=== PATIENT | female | born 1970 | race Caucasian/White ===

== ENCOUNTER 2019-03-06 15:42 | Emergency (ER) | payer OTHER ==
[~2019-03-06] VITALS: Ht 182.8 cm; Wt 167.8 kg
[~2019-03-06 15:42] MED LIST: ANAPROX DS550 MG PO; BACTRIM DS 8001 TA1 PO; CYCLOBENZAPRINE10 MG PO; DIFLUCAN150 MG PO; MACROBID100 M1 PO; MAGNESIUM400 M1 PO; NAPROSYN500 MG PO; NORCO 325 MG-51 TAB PO; OMEGA-31000 MG PO; PROPRANOLOL HCL40 M1 PO; PROVERA10 MG PO; PROVERA5 MG PO; RANITIDINE75 MG PO; ROBAXIN750 MG PO; TOPAMAX100 M1 PO; TRAMADOL HCL50 MG PO; ZANTAC150 MG PO; ZOFRAN4 MG PO
[2019-03-06 15:43] VITALS: BP 153/70
[2019-03-06] MEDS ORDERED: DICLOFENAC SODI50 MG PO (16:41)
== END 2019-03-06 17:05 | disposition home or self-care (01) ==
LOC: ED 15:42
DX: M25.562 Pain in left knee (principal); M17.12 Unilateral primary osteoarthritis, left knee; Z79.899 Other long term (current) drug therapy; Z88.7 Allergy status to serum and vaccine; Z88.8 Allergy status to other drugs, medicaments and biological substances; Z88.6 Allergy status to analgesic agent; Z91.040 Latex allergy status; X50.1XXA Overexertion from prolonged static or awkward postures, initial encounter; Y93.89 Activity, other specified; Y92.89 Other specified places as the place of occurrence of the external cause; Y99.9 Unspecified external cause status

== ENCOUNTER 2021-08-06 18:44 | Emergency (ER) | payer OTHER ==
[~2021-08-06] VITALS: Ht 175.2 cm; Wt 161.0 kg
[~2021-08-06 18:44] MED LIST changes: +DICLOFENAC SODI50 MG PO
[2021-08-06 18:49] VITALS: BP 163/88
[2021-08-06] MEDS ORDERED: PREDNISONE20 M1 PO (22:49)
== END 2021-08-06 23:19 | disposition home or self-care (01) ==
LOC: ED 18:44
DX: S60.212A Contusion of left wrist, initial encounter (principal); M25.552 Pain in left hip; M25.562 Pain in left knee; Z88.7 Allergy status to serum and vaccine; Z91.040 Latex allergy status; Z88.8 Allergy status to other drugs, medicaments and biological substances; Z79.899 Other long term (current) drug therapy; Z90.49 Acquired absence of other specified parts of digestive tract; W18.39XA Other fall on same level, initial encounter; Y93.89 Activity, other specified; Y92.89 Other specified places as the place of occurrence of the external cause; Y99.8 Other external cause status

== ENCOUNTER 2022-03-14 12:01 | Inpatient (IN) | payer OTHER ==
[~2022-03-14] VITALS: Ht 177.8 cm; Wt 165.2 kg
[~2022-03-14 12:01] MED LIST changes: +PREDNISONE20 M1 PO
[2022-03-14 12:09] VITALS: BP 157/88
[2022-03-14 16:00] VITALS: BP 148/84
[2022-03-14 20:02] VITALS: BP 134/84
[2022-03-14 21:45] VITALS: BP 140/86
[2022-03-15] VITALS: BP 156/67
[2022-03-15 06:33] LABS: BASO # 0.1 10*3/uL (0.0-0.1); BASO % 0.7 % (0.0-1.0); EOS # 0.2 10*3/uL (0.0-0.4); HEMATOCRIT 43.1 % (37.0-47.0); LYMPH # 2.8 10*3/uL (1.3-4.4); LYMPH % 34.5 % (27.0-41.0); MEAN CELL VOLUME 87.8 fl (81.0-99.0); MEAN CORPUSCULAR HGB 29.1 pg (27.0-31.0); MEAN CORPUSCULAR HGB CONC 33.2 g/dl (33.0-37.0); MEAN PLATELET VOLUME 10.8 fl (9.6-12.3); MONO # 0.9 10*3/uL (0.1-1.0); NEUT # 4.1 10*3/uL (2.3-7.9); NEUT % 51.7 % (47.0-73.0); PLATELET COUNT AUTOMATED 248 10*3/uL (130-400); RED BLOOD COUNT 4.91 10*6/uL (4.10-5.10); RED CELL DISTRI WIDTH 12.1 % (0-14.5)
[2022-03-15 07:21] LABS: BUN 8 mg/dl (7-24); CHLORIDE 109 mmol/L (98-107); CHOLESTEROL 206 mg/dL (<200); CREATININE 0.75 mg/dL (0.55-1.02); POTASSIUM 2.9 mmol/L (3.5-5.1); SODIUM 141 mmol/L (136-145); TRIGLYCERIDES 190 mg/dl (<150)
[2022-03-15 07:31] LABS: FREE T4 0.82 ng/dl (0.76-1.46); LDL CHOLESTEROL 127 mg/dL (9-159)
[2022-03-15 08:00] VITALS: BP 150/80
[2022-03-15] MEDS ORDERED: RYBELSUS7 MG PO (09:40)
[2022-03-15] MEDS ORDERED: FLOVENT HFA12 GM INH (09:40)
[2022-03-15] MEDS ORDERED: GLIPIZIDE10 M1 PO (09:41)
[2022-03-15] MEDS ORDERED: DICLOFENAC SOD75 MG PO (09:41)
[2022-03-15] MEDS ORDERED: LEVOTHYROXINE200 MC2 PO (09:42)
[2022-03-15] MEDS ORDERED: LEVOTHYROXINE50 MCG PO (09:44)
[2022-03-15] MEDS ORDERED: OMEPRAZOLE40 MG PO (09:45)
[2022-03-15] MEDS ORDERED: MICRONIZED COLES1 GM PO (09:47)
[2022-03-15] MEDS ORDERED: CRESTOR20 M1 PO (09:48)
[2022-03-15 12:00] VITALS: BP 151/77
[2022-03-15 15:46] VITALS: BP 148/84
[2022-03-15 20:00] VITALS: BP 135/86
[2022-03-16] VITALS: BP 147/83
[2022-03-16 08:00] VITALS: BP 142/83
[2022-03-16 09:52] LABS: BASO # 0.1 10*3/uL (0.0-0.1); BASO % 0.7 % (0.0-1.0); EOS # 0.2 10*3/uL (0.0-0.4); EOS % 3.5 % (1.0-4.0); HEMATOCRIT 43.9 % (37.0-47.0); LYMPH # 2.7 10*3/uL (1.3-4.4); LYMPH % 39.3 % (27.0-41.0); MEAN CELL VOLUME 87.8 fl (81.0-99.0); MEAN CORPUSCULAR HGB 29.2 pg (27.0-31.0); MEAN CORPUSCULAR HGB CONC 33.3 g/dl (33.0-37.0); MEAN PLATELET VOLUME 9.6 fl (9.6-12.3); MONO # 0.8 10*3/uL (0.1-1.0); MONO % 11.9 % (3.0-9.0); NEUT % 44.5 % (47.0-73.0); PLATELET COUNT AUTOMATED 239 10*3/uL (130-400); RED CELL DISTRI WIDTH 12.3 % (0-14.5); WHITE BLOOD COUNT 6.8 10*3/uL (4.8-10.8)
[2022-03-16 10:08] LABS: BUN 7 mg/dl (7-24); CHLORIDE 108 mmol/L (98-107); CREATININE 0.76 mg/dL (0.55-1.02); POTASSIUM 3.7 mmol/L (3.5-5.1); SODIUM 140 mmol/L (136-145)
[2022-03-16 12:00] VITALS: BP 142/85
[2022-03-16 16:00] VITALS: BP 152/80
[2022-03-16 20:00] VITALS: BP 137/84
[2022-03-17] VITALS: BP 136/93
[2022-03-17 08:00] VITALS: BP 143/75
[2022-03-17 10:50] LABS: VITAMIN D, 25-HYDROXY 17.8 ng/mL (30-100)
[2022-03-17] MEDS ORDERED: Percocet 325 MG1 TAB PO (11:35)
[2022-03-17 12:00] VITALS: BP 140/71
[2022-03-17 16:00] VITALS: BP 148/69
== END 2022-03-17 15:00 | disposition home or self-care (01) | DRG 342 ==
LOC: ED 12:01 → 4E 16:35 → EDHOLD 16:35 → 4E 20:02
PROVIDERS: Student in an Organized Health Care Education/Training Program; ADMIT Internal Medicine; ATTEND Internal Medicine
DX: S82.142A Displaced bicondylar fracture of left tibia, initial encounter for closed fracture (principal); J45.909 Unspecified asthma, uncomplicated; E03.9 Hypothyroidism, unspecified; E78.5 Hyperlipidemia, unspecified; E66.01 Morbid (severe) obesity due to excess calories; K21.9 Gastro-esophageal reflux disease without esophagitis; I10 Essential (primary) hypertension; E87.6 Hypokalemia; E87.8 Other disorders of electrolyte and fluid balance, not elsewhere classified; E11.65 Type 2 diabetes mellitus with hyperglycemia; Z20.822 Contact with and (suspected) exposure to COVID-19; R26.2 Difficulty in walking, not elsewhere classified; Z88.7 Allergy status to serum and vaccine; Z88.8 Allergy status to other drugs, medicaments and biological substances; Z88.1 Allergy status to other antibiotic agents; Z91.040 Latex allergy status; Z90.710 Acquired absence of both cervix and uterus; Z90.49 Acquired absence of other specified parts of digestive tract; Z83.3 Family history of diabetes mellitus; Z82.3 Family history of stroke; Z82.49 Family history of ischemic heart disease and other diseases of the circulatory system; Z78.9 Other specified health status; Z68.43 Body mass index [BMI] 50.0-59.9, adult; W01.0XXA Fall on same level from slipping, tripping and stumbling without subsequent striking against object, initial encounter; Y93.89 Activity, other specified; Y92.89 Other specified places as the place of occurrence of the external cause; Y99.8 Other external cause status

== ENCOUNTER 2022-04-19 10:44 | Emergency (ER) | payer OTHER ==
[~2022-04-19] VITALS: Wt 164.2 kg
[~2022-04-19 10:44] MED LIST changes: +CRESTOR20 M1 PO; +DICLOFENAC SOD75 MG PO; +FLOVENT HFA12 GM INH; +GLIPIZIDE10 M1 PO; +LEVOTHYROXINE200 MC2 PO; +LEVOTHYROXINE50 MCG PO; +MICRONIZED COLES1 GM PO; +OMEPRAZOLE40 MG PO; +Percocet 325 MG1 TAB PO; +RYBELSUS7 MG PO
[2022-04-19 12:26] VITALS: BP 150/73
== END 2022-04-19 13:08 | disposition home or self-care (01) ==
LOC: ED 10:44
DX: S89.92XA Unspecified injury of left lower leg, initial encounter (principal); K21.9 Gastro-esophageal reflux disease without esophagitis; I10 Essential (primary) hypertension; E78.5 Hyperlipidemia, unspecified; E03.9 Hypothyroidism, unspecified; E66.01 Morbid (severe) obesity due to excess calories; E11.9 Type 2 diabetes mellitus without complications; Z88.8 Allergy status to other drugs, medicaments and biological substances; Z91.040 Latex allergy status; Z88.1 Allergy status to other antibiotic agents; Z79.899 Other long term (current) drug therapy; Z90.89 Acquired absence of other organs; Z90.49 Acquired absence of other specified parts of digestive tract; Z98.890 Other specified postprocedural states; Z90.710 Acquired absence of both cervix and uterus; W18.39XA Other fall on same level, initial encounter; Y93.89 Activity, other specified; Y92.89 Other specified places as the place of occurrence of the external cause; Y99.8 Other external cause status

== ENCOUNTER → 2022-11-11 | Outpatient (CLI) | payer OTHER | END | disposition home or self-care (01) | LOC: RAD 09:32 | PROVIDERS: ATTEND Nurse Practitioner Family | DX: J06.9 Acute upper respiratory infection, unspecified (principal) ==

== ENCOUNTER 2023-04-07 18:07 | Emergency (ER) | payer OTHER ==
[~2023-04-07] VITALS: Ht 182.8 cm; Wt 162.4 kg
[2023-04-07 18:20] VITALS: BP 144/99
[2023-04-07] MEDS ORDERED: LANTUS SOL100 UNIT/1 SC (18:23)
[2023-04-07] MEDS ORDERED: TRULICITY0.75 MG/0. SC (18:23)
== END 2023-04-07 20:10 | disposition home or self-care (01) ==
LOC: ED 18:07
DX: S50.12XA Contusion of left forearm, initial encounter (principal); I10 Essential (primary) hypertension; J45.909 Unspecified asthma, uncomplicated; F31.9 Bipolar disorder, unspecified; E11.9 Type 2 diabetes mellitus without complications; E03.9 Hypothyroidism, unspecified; K21.9 Gastro-esophageal reflux disease without esophagitis; Z88.5 Allergy status to narcotic agent; Z88.7 Allergy status to serum and vaccine; Z91.041 Radiographic dye allergy status; Z91.040 Latex allergy status; Z91.013 Allergy to seafood; Z90.710 Acquired absence of both cervix and uterus; Z90.49 Acquired absence of other specified parts of digestive tract; Z90.89 Acquired absence of other organs; Z98.890 Other specified postprocedural states; W01.198A Fall on same level from slipping, tripping and stumbling with subsequent striking against other object, initial encounter; Y93.89 Activity, other specified; Y92.009 Unspecified place in unspecified non-institutional (private) residence as the place of occurrence of the external cause; Y99.8 Other external cause status

== ENCOUNTER → 2023-08-05 | Outpatient (CLI) | payer OTHER ==
[~2023-08-05] MED LIST changes: +LANTUS SOL100 UNIT/1 SC; +TRULICITY0.75 MG/0. SC
[2023-08-05 15:07] LABS: ALKALINE PHOSPHATASE 63 U/L (46-116); BUN 7 mg/dl (9-23); CHLORIDE 103 mmol/L (98-107); CHOLESTEROL 233 mg/dL (<200); FREE T4 0.69 ng/dl (0.89-1.76); LDL CHOLESTEROL 134 mg/dL (9-159); POTASSIUM 3.8 mmol/L (3.4-5.1); SGPT/ALT 12 U/L (5-49); TOTAL PROTEIN 7.7 gm/dL (6.0-8.0); TRIGLYCERIDES 290 mg/dl (<150)
== END | disposition home or self-care (01) ==
LOC: LAB 14:10
PROVIDERS: ATTEND Internal Medicine
DX: E11.65 Type 2 diabetes mellitus with hyperglycemia (principal); E03.9 Hypothyroidism, unspecified; E55.9 Vitamin D deficiency, unspecified; E34.9 Endocrine disorder, unspecified; E78.5 Hyperlipidemia, unspecified

== ENCOUNTER 2024-02-04 16:02 | Emergency (ER) | payer OTHER ==
[2024-02-04 16:03] VITALS: BP 123/87
[2024-02-04] MEDS ORDERED: Acetaminophen/Hydrocodone 5 MG/325 MG TABLET PO ONE (17:00)
== END 2024-02-04 19:28 | disposition home or self-care (01) ==
LOC: ED 16:02
DX: S50.01XA Contusion of right elbow, initial encounter (principal); S70.01XA Contusion of right hip, initial encounter; E11.9 Type 2 diabetes mellitus without complications; I10 Essential (primary) hypertension; F31.9 Bipolar disorder, unspecified; Z88.5 Allergy status to narcotic agent; Z88.7 Allergy status to serum and vaccine; Z91.041 Radiographic dye allergy status; Z91.040 Latex allergy status; Z88.1 Allergy status to other antibiotic agents; Z91.013 Allergy to seafood; Z88.8 Allergy status to other drugs, medicaments and biological substances; Z90.710 Acquired absence of both cervix and uterus; Z90.49 Acquired absence of other specified parts of digestive tract; Z90.89 Acquired absence of other organs; Z98.890 Other specified postprocedural states; W01.0XXA Fall on same level from slipping, tripping and stumbling without subsequent striking against object, initial encounter; Y93.89 Activity, other specified; Y92.009 Unspecified place in unspecified non-institutional (private) residence as the place of occurrence of the external cause; Y99.8 Other external cause status

== ENCOUNTER → 2024-11-08 | Outpatient (CLI) | payer OTHER ==
[2024-11-08 14:37] LABS: ALKALINE PHOSPHATASE 64 U/L (46-116); BUN 6 mg/dl (9-23); CHLORIDE 110 mmol/L (98-107); CHOLESTEROL 142 mg/dL (<200); FREE T4 1.27 ng/dl (0.89-1.76); LDL CHOLESTEROL 69 mg/dL (9-159); POTASSIUM 3.3 mmol/L (3.4-5.1); SGPT/ALT 15 U/L (5-49); TOTAL PROTEIN 7.4 gm/dL (6.0-8.0); TRIGLYCERIDES 148 mg/dl (<150)
== END | disposition home or self-care (01) ==
LOC: LAB 13:32
PROVIDERS: Student in an Organized Health Care Education/Training Program; ATTEND Internal Medicine Endocrinology, Diabetes & Metabolism
DX: E11.65 Type 2 diabetes mellitus with hyperglycemia (principal); E55.9 Vitamin D deficiency, unspecified; E78.2 Mixed hyperlipidemia; E03.9 Hypothyroidism, unspecified

== ENCOUNTER 2025-06-25 16:52 | Emergency (ER) | payer OTHER ==
[~2025-06-25] VITALS: Ht 182.8 cm; Wt 167.8 kg
[2025-06-25 17:03] VITALS: BP 155/84
== END 2025-06-25 17:47 | disposition home or self-care (01) ==
LOC: ED 16:52
DX: M79.644 Pain in right finger(s) (principal); I10 Essential (primary) hypertension; E11.9 Type 2 diabetes mellitus without complications; J45.909 Unspecified asthma, uncomplicated; F32.A Depression, unspecified; M19.90 Unspecified osteoarthritis, unspecified site; Z90.49 Acquired absence of other specified parts of digestive tract; Z90.89 Acquired absence of other organs; Z98.890 Other specified postprocedural states; Z90.710 Acquired absence of both cervix and uterus; Z88.5 Allergy status to narcotic agent; Z91.013 Allergy to seafood; Z91.040 Latex allergy status; Z88.8 Allergy status to other drugs, medicaments and biological substances